=== PATIENT | male | born 1975 ===

== ENCOUNTER 2024-04-15 08:25 | Day surgery (SDC) | payer OTHER ==
[~2024-04-15 08:25] MED LIST: ATORVASTATIN CA20 MG PO; CARVEDILOL25 M1 PO; CHILDREN'S ASPI81 MG PO; GRALISE600 MG PO; JANTOVEN10 MG PO; LANTUS SOL100 UNIT/1; LEVO-T75 MCG PO; METFORMIN HCL1000 M2 PO; ZESTRIL2.5 MG PO; ZYLOPRIM100 M1 PO
[2024-04-15] MEDS ORDERED: CEFTRIAXONE SODIUM 2,000 MG VIAL ONE (13:02)
[2024-04-15] MEDS ORDERED: METRONIDAZOLE/SODIUM CHLORIDE 500 MG/100 ML PIGGYBACK IV ONE (13:02)
[2024-04-15] MEDS ORDERED: LIDOCAINE HCL 1%/EPINEPHRINE 20ML VIAL IJ ONE (13:02)
[2024-04-15] MEDS ORDERED: POVIDONE-IODINE 118 ML BOTT TOP ONE (13:02)
[2024-04-15] MEDS ORDERED: DIBUCAINE 30 GM TUBE ONE (13:02)
== END 2024-04-15 19:40 | disposition home or self-care (01) ==
LOC: CIR.AMB 08:25
PROVIDERS: ATTEND Colon & Rectal Surgery
DX: D12.8 Benign neoplasm of rectum (principal); D12.9 Benign neoplasm of anus and anal canal; E11.9 Type 2 diabetes mellitus without complications; I10 Essential (primary) hypertension; E03.8 Other specified hypothyroidism; E78.00 Pure hypercholesterolemia, unspecified